=== PATIENT | female | born 1975 | race Caucasian/White ===

== ENCOUNTER 2016-09-12 15:26 | Emergency (ER) | payer SELFPAY ==
[2016-09-12 17:15] LABS: APPEARANCE CLOUDY (CLEAR); BILIRUBIN NEGATIVE (NEGATIVE); COLOR RED (YELLOW); GLUCOSE NEGATIVE (NEGATIVE); KETONE NEGATIVE (NEGATIVE); LEUKOCYTE ESTERASE 2+ (NEGATIVE); NITRITE POSITIVE (NEGATIVE); PROTEIN 1+ mg/dL (NEGATIVE); SPECIFIC GRAVITY 1.015 (1.005-1.020); UROBILINOGEN NORMAL (NORMAL)
[2016-09-12 17:17] LABS: BACTERIA FEW /hpf (NONE SEEN); EPITHELIAL CELLS 0-5 /hpf (0-5); RED CELLS - URINE >50 /hpf (0-5); WHITE CELLS - URINE 0-5 /hpf (0-5)
[2016-09-12 18:59] LABS: BASOPHILS 0.3 % (0.0-2.0); EOSINOPHILS 1.3 % (0-7); HEMATOCRIT 36.1 % (36.0-48.0); HEMOGLOBIN 11.6 g/dL (12-16); IMMATURE GRANULOCYTES 0.5 % (0-5); MCHC 32.1 g/dL (31.0-37.0); MCV 80.9 fL (80.0-100.0); MEAN PLATELET VOLUME 10.5 fL (7.4-10.4); MONOCYTES 5.7 % (2-11); NEUTROPHILS 68.2 % (40-80); RBC 4.46 10x6/uL (4.00-5.40); RDW 16.5 % (11.5-14.5); WBC 11.3 10x3/uL (4.8-10.8)
[2016-09-12 19:00] LABS: PLATELET COUNT 379 10x3/uL (130-400)
[2016-09-12 19:15] LABS: ALKALINE PHOSPHATASE 60 U/L (46-116); ALT (SGPT) 26 U/L (10-68); BILIRUBIN - TOTAL 0.41 mg/dL (0.2-1.3); CALC OSMOLALITY 280 mosm/kg (275-300); CALCIUM 10.5 mg/dL (8.5-10.1); CARBON DIOXIDE 21.9 mmol/L (21.0-32.0); CHLORIDE - SERUM 106 mmol/L (98-107); CREATININE - SERUM 0.8 mg/dL (0.6-1.3); GLUCOSE 92 mg/dL (74-106); POTASSIUM - SERUM 5.6 mmol/L (3.5-5.1); PROTEIN - SERUM 7.9 g/dL (6.4-8.2); SODIUM 140 mmol/L (136-145); UREA NITROGEN 17 mg/dL (7-18); eGFR NON AFRICAN AMERICAN 84 mL/min (90-120)
== END 2016-09-12 20:50 | disposition home or self-care (01) ==
LOC: D.ER 15:26
PROVIDERS: Family Medicine
DX: N39.0 Urinary tract infection, site not specified (principal); R31.9 Hematuria, unspecified; C64.9 Malignant neoplasm of unspecified kidney, except renal pelvis; C79.00 Secondary malignant neoplasm of unspecified kidney and renal pelvis

== ENCOUNTER 2017-03-29 14:32 | Emergency (ER) | payer SELFPAY ==
[2017-03-29 15:31] LABS: BASOPHILS 0.3 % (0-2); EOSINOPHILS 1.3 % (0-7); HEMATOCRIT 37.9 % (36.0-48.0); IMMATURE GRANULOCYTES 0.3 % (0-5); LYMPHOCYTES 17.9 % (15-50); MCH 25.1 pg (26.0-34.0); MCHC 31.7 g/dL (31.0-37.0); MCV 79.3 fL (80.0-100.0); MEAN PLATELET VOLUME 10.3 fL (7.4-10.4); NEUTROPHILS 75.2 % (40-80); RBC 4.78 10x6/uL (4.00-5.40); RDW 15.7 % (11.5-14.5); WBC 9.3 10x3/uL (4.8-10.8)
[2017-03-29 15:33] LABS: PLATELET COUNT 268 10x3/uL (130-400)
[2017-03-29 16:11] LABS: ALBUMIN 3.5 g/dL (3.4-5.0); ANION GAP 14.9 mmol/L (8-16); BILIRUBIN - TOTAL 0.35 mg/dL (0.2-1.3); CALCIUM 8.4 mg/dL (8.5-10.1); CARBON DIOXIDE 23.1 mmol/L (21.0-32.0); CREATININE - SERUM 1.1 mg/dL (0.6-1.3); PROTEIN - SERUM 7.2 g/dL (6.4-8.2)
[2017-03-29 16:17] LABS: HCG SERUM NEGATIVE (NEGATIVE)
== END 2017-03-29 17:37 | disposition home or self-care (01) ==
LOC: D.ER 14:32
PROVIDERS: Emergency Medicine
DX: R10.31 Right lower quadrant pain (principal); Z85.528 Personal history of other malignant neoplasm of kidney; Z90.5 Acquired absence of kidney; N93.9 Abnormal uterine and vaginal bleeding, unspecified; R11.2 Nausea with vomiting, unspecified